=== PATIENT | male | born 1995 | race Hispanic/Latino ===

== ENCOUNTER 2017-09-27 07:24 | Emergency (ER) | payer BC ==
[2017-09-27] MEDS ORDERED: MORPHINE 4 MG/ML SYR ONE ×2 (07:43→09:00)
[2017-09-27] MEDS ORDERED: NA CHLORIDE 0.9% 1,000 ML ONE (07:43)
[2017-09-27] MEDS ORDERED: ONDANSETRON 4 MG/2 ML VIAL ONE (07:43)
[2017-09-27 07:53] LABS: Absolute Lymphocytes (CBC) 3.6 K/uL (0.7-4.9); Absolute Monocytes 0.8 K/uL (0.1-1.3); Absolute Neutrophil 7.7 K/uL (1.8-8.0); Basophils % 0.6 % (0-1.3); Eosinophils % 1.3 % (0-4.4); Hematocrit 46.8 % (39.6-49.0); Lymphocytes % 29.1 % (15.3-44.8); MCH 30.8 pg (27.0-35.0); MCV 88.8 fL (80-100); Monocytes % 6.4 % (3.3-12.3); RBC Red Blood Cell Count 5.27 M/uL (4.33-5.43)
[2017-09-27 08:19] LABS: Potassium 2.9 mmol/L (3.5-5.1)
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
[2017-09-27] MEDS ORDERED: FENTANYL CITR 100 MCG/2 ML ONE (09:04)
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
[2017-09-27 10:07] LABS: Urine Appearance TURBID; Urine Blood 3+ (NEG); Urine Color RED; Urine Glucose TRACE (NEG); Urine Protein 3+ (NEG); Urine Specific Gravity >=1.030 (1.005-1.030)
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
[2017-09-27 10:25] LABS: Urine Bilirubin NEGATIVE (NEG); Urine Microscopic Reflex ORDER UMIC
[2017-09-27 10:27] LABS: Urine Bacteria <20 /HPF (NONE SEEN); Urine RBC TNTC /HPF (NONE SEEN)
[2017-09-27 10:31] LABS: Urine Culture Reflex Order REFLEXED
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
[2017-09-27] MEDS ORDERED: PIPER/TAZO/NS 3.375gm 3.375 GM/100 ML BAG ONE (10:45)
[2017-09-27 11:22] VITALS: TEMP 97.9
[2017-09-27 11:24] VITALS: BP 126/75; O2SAT 95
== END 2017-09-27 11:16 | disposition short-term general hospital (02) ==
LOC: ER 07:24
DX: S37.29XA Other injury of bladder, initial encounter (principal); S36.81XA Injury of peritoneum, initial encounter; V49.40XA Driver injured in collision with unspecified motor vehicles in traffic accident, initial encounter
CPT/HCPCS: 36415; 51702; 70450; 71045; 71260; 72125; 72170; 72193; 74177; 80048; 81003; 81015; 85025; 86850; 86900; 86901; 87086; 87088; 96374; 96375; 99285; J2405; J2543; J3010; J7030; Q9967